=== PATIENT | male | born 1985 | race Caucasian/White ===

== ENCOUNTER 2019-05-22 00:25 | Emergency (ER) | payer OTHER ==
[~2019-05-22] VITALS: Ht 180.3 cm; Wt 81.8 kg
[2019-05-22 00:29] VITALS: BP 113/69; PULSE 85; RESP 18; Ht 180.3 cm; Wt 81.8 kg
--- NOTE | 2019-05-22 00:31 | ERD ---
ER Documentation Chief Complaint Chief Complaint Drank too much HPI Patient is a 33-year-old male with no medical problems who presents with police saying "I drank too much". He is under arrest for DUI. He was stopped in his car when the police arrived. There was no damage to the car and he denies any crash. He had vomited on himself. He has no trauma. He has no injuries. He just complains of left-sided leg pain which started after he got arrested. Upon review of old medical records this is the patient's first visit to the emergency department. He does not currently have a primary doctor. ROS All systems reviewed and are negative except as per history of present illness. PMhx/Soc Medical and Surgical Hx: pt denies Medical Hx FmHx Family History: No diabetes Physical Exam Physical Exam Const: No acute distress Head: Atraumatic Eyes: Normal Conjunctiva ENT: Normal External Ears, Nose and Mouth. Neck: Full range of motion. No meningismus. Resp: Clear to auscultation bilaterally Cardio: Regular rate and rhythm, no murmurs Abd: Soft, non tender, non distended. Normal bowel sounds Skin: No petechiae or rashes Back: No midline or flank tenderness Ext: No cyanosis, or edema, 2+ DP pulses bilaterally Neur: Awake but intoxicated Procedures/MDM Patient is a 33-year-old male presents for medical clearance for police. He is intoxicated and is under arrest for DUI. The patient will be discharged. He can return for any worsening symptoms. He should not drink alcohol to excess. He will be given information for the local clinics as he does not currently have a primary doctor. Patient does not appear to have any trauma and there was no car accident. The patient admits to drinking alcohol. Departure Diagnosis: Primary Impression: Alcohol intoxication Complication of substance-induced condition: uncomplicated Qualified Codes: F10.920 - Alcohol use, unspecified with intoxication, uncomplicated Condition: MEHRAN Barroso MD May 22, 2019 00:31
== END 2019-05-22 00:35 | disposition home or self-care (01) ==
LOC: E/R 00:25
DX: F10.920 Alcohol use, unspecified with intoxication, uncomplicated (principal)
CPT/HCPCS: 99282